=== PATIENT | male | born 1980 | race Caucasian/White ===

== ENCOUNTER 2017-11-30 00:35 | Inpatient (IN) | payer BC ==
[2017-11-29] MEDS: SODIUM CHLOR 0.9% 1000 ML INJ 1,000 ML IV SCH (23:00)
[~2017-11-30] VITALS: Ht 188 cm; Wt 97.8 kg
[~2017-11-30 00:35] MED LIST: ACETAMINOPHEN 325 MG TAB PO PRN; MORPHINE SULFATE 2 MG/ML SYRINGE IV PUSH PRN; MORPHINE SULFATE 4 MG/ML INJ IV PUSH PRN; NALOXONE HCL 0.4 MG/ML AMP IV PUSH PRN; ONDANSETRON HCL 4 MG/2 ML VIAL IVP PRN; SODIUM CHLORIDE 0.9% FLUSH 10 ML FLUSH IV FLUSH PRN
[2017-11-30 04:00] VITALS: BP 114/72; PULSE 65; RESP 20; TEMP 97.8; O2SAT 99
--- NOTE | 2017-11-30 04:27 | HHI.HP ---
[facility] Service [facility] Primary Care Physician No Primary Care Physician Admission Diagnosis right ankle fracture . Diagnoses: (1) Fracture of distal fibula Chief Complaint: right ankle pain x 1 week Travel History International Travel<30 Days: No Contact w/Intl Traveler <30 Da: No History of Present Illness Mr. Barber is a 37 y/o male with no significant medical history who presented to the ER in [place] for evaluation of right ankle pain for one week. He was found to have a right mildly displaced distal fibula fracture with disruption of the ankle mortise. Dr. Jarvis, orthopedics, recommended transfer to [facility] for surgical correction in a.m. The patient is seen in his hospital room. He is eager for discharge so he can return to work. He states he was walking up some steps when he started to fall and turned his ankle. Since that time, he has had persistent right ankle pain and swelling. It has not worsened but has just not improved, prompting his ER visit. He denies any recent illness, chest pain, sob, fevers, nausea, vomiting , or diarrhea. Review of Systems Except as stated in HPI: all other systems reviewed are Neg Past Family Social History Past Medical History Denies DM, HTN, heart disease, respiratory disease, liver disease, kidney problems, DVT, PE, CVA, seizures, cancer, or thyroid problems. . Past Surgical History Left inguinal hernia repair 10 years ago Right knee arthroscopy x 3 . Reported Medications Reported Meds & Active Scripts Active No Active Prescriptions or Reported Medications . Allergies: Coded Allergies: Penicillins (Verified Allergy, Unknown, SWELLING, 11/29/17) Family History Denies family hx heart disease or diabetes; denies family hx of adverse reactions to anesthesia . Social History Tobacco: denies ever smoking Alcohol: occasional Illicit Drugs: denies . Physical Exam Physical Exam CONSTITUTIONAL: This is a well-nourished, well-developed patient, in no apparent distress. INTEGUMENTARY: No rashes or lesions. Cool and dry. HEAD: Atraumatic. Normocephalic. EYES: No scleral icterus. No injection or drainage. ENT: Nose without bleeding, purulent drainage. Airway patent. NECK: Trachea midline. No JVD. CARDIOVASCULAR: Regular rate and rhythm without murmurs, gallops, or rubs. RESPIRATORY: Clear to auscultation. Breath sounds equal bilaterally. No wheezes , rales, or rhonchi. GASTROINTESTINAL: Abdomen soft, non-tender, nondistended. No guarding. MUSCULOSKELETAL: Extremities without clubbing cyanosis. Right lower extremity in splint; sensation, movement intact to toes; capillary refill < 3 secs. NEUROLOGICAL: Awake and alert. Motor and sensory grossly within normal limits. Normal speech. . Caprini VTE Risk Assessment Caprini VTE Risk Assessment: Mod/High Risk (score >= 2) Caprini Risk Assessment Model Point Value = 1 Point Value = 2 Point Value = 3 Point Value = 5 Age 41-60 Minor surgery BMI > 25 kg/m2 Swollen legs Varicose veins or History of unexplained or recurrent spontaneous Oral contraceptives or hormone replacement Sepsis (< 1 month) Serious lung disease, including pneumonia (< 1 month) Abnormal pulmonary function Acute myocardial infarction Congestive heart failure (< 1 month) History of inflammatory bowel disease Medical patient at bed rest Age 61-74 Arthroscopic surgery Major open surgery (> 45 min) Laparoscopic surgery (> 45 min) Malignancy Confined to bed (> 72 hours) Immobilizing plaster cast Central venous access Age >= 75 History of VTE Family history of VTE Factor V Leiden Prothrombin [id number] Lupus anticoagulant Anticardiolipin antibodies Elevated serum homocysteine Heparin-induced thrombocytopenia Other congenital or acquired thrombophilia Stroke (< 1 month) Elective arthroplasty Hip, pelvis, or leg fracture Acute spinal cord injury (< 1 month) Prophylaxis Regimen Total Risk Factor Score Risk Level Prophylaxis Regimen 0-1 Low Early ambulation 2 Moderate Order ONE of the following: *Sequential Compression Device (SCD) *Heparin 5000 units SQ BID 3-4 Higher Order ONE of the following medications: *Heparin 5000 units SQ TID *Enoxaparin/Lovenox 40 mg SQ daily (WT < 150 kg, CrCl > 30 mL/min) *Enoxaparin/Lovenox 30 mg SQ daily (WT < 150 kg, CrCl > 10-29 mL/min) *Enoxaparin/Lovenox 30 mg SQ BID (WT < 150 kg, CrCl > 30 mL/min) AND/OR *Sequential Compression Device (SCD) 5 or more Highest Order ONE of the following medications: *Heparin 5000 units SQ TID (Preferred with Epidurals) *Enoxaparin/Lovenox 40 mg SQ daily (WT < 150 kg, CrCl > 30 mL/min) *Enoxaparin/Lovenox 30 mg SQ daily (WT < 150 kg, CrCl > 10-29 mL/min) *Enoxaparin/Lovenox 30 mg SQ BID (WT < 150 kg, CrCl > 30 mL/min) AND *Sequential Compression Device (SCD) Assessment and Plan Problem List: (1) Fracture of distal fibula ICD Code: S82.839A - Other fracture of upper and lower end of unspecified fibula, initial encounter for closed fracture Assessment and Plan Mr. Barber is a 37 y/o male with no significant medical history who presented to the ER in [place] for evaluation of right ankle pain for one week. He was found to have a right mildly displaced distal fibula fracture with disruption of the ankle mortise. Dr. Jarvis, orthopedics, [place] [facility] [place]. Right ankle fracture - NPO after midnight for surgical intervention - orthopedics consulted - Morphine 2 mg IV q3h PRN pain - Patient anxious to return to work DVT prophylaxis SCDs/TEDs to nonoperative leg . Discussed Condition With Patient, Dr. Milelr, and RN . Physician Certification 2 Midnight Certification Type: Admission for Inpatient Services Order for Inpatient Services The services are ordered in accordance with Medicare regulations or non- Medicare payer requirements, as applicable. In the case of services not specified as inpatient-only, they are appropriately provided as inpatient services in accordance with the 2-midnight benchmark. Estimated LOS (days): 2 days is the estimated time the patient will need to remain in the hospital, assuming treatment plan goals are met and no additional complications. Post-Hospital Plan: Home Problem Qualifiers (1) Fracture of distal fibula: Bela Dobbs November 30, 2017 04:27
--- NOTE | 2017-11-30 06:53 | PD.ORT.PN ---
Subjective Subjective Remarks s/p rolled ankle approx 1 week ago right ankle pain. no other complaints. Objective Vitals Vital Signs Date Time Temp Pulse Resp B/P (MAP) Pulse Ox O2 Delivery O2 Flow Rate FiO2 11/30/17 04:00 97.8 65 20 114/72 (86) 99 Objective Remarks RLE: +short leg splint. intact. NVI Assessment & Plan Assessment and Plan 1) Right distal fibular fx -npo -consents -surgery this AM with [facility] -planned DC home today after surgery Nicola Abbott/[employer] BRENDA November 30, 2017 06:53
[2017-11-30] MEDS ORDERED: HYDR-3580 PO (06:54)
[2017-11-30] MEDS ORDERED: WALKER/ADULT/FO1 MIS (06:54)
--- NOTE | 2017-11-30 07:34 | MB ---
cc: Nigel Farmer MD DATE: 11/30/2017 CONSULTING PROVIDER: Dr. Miller. REASON FOR CONSULTATION: Right ankle fracture. HISTORY OF PRESENT ILLNESS: Pako is a 37-year-old male who presented to the [facility] emergency room with right ankle pain. He states that approximately 1 week ago, he twisted his ankle going down the stairs. He had immediate right ankle pain. X-rays in the emergency room revealed a right distal fibula fracture with widening of the medial clear space. The patient was placed into a splint. 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 The pain is worse with weightbearing. He has been using crutches because of the pain. The pain is improved with rest. PAST MEDICAL HISTORY: None. PAST SURGICAL HISTORY: 1. Right knee arthroscopy. 2. Left hernia repair. MEDICATIONS: None. ALLERGIES: PENICILLIN. FAMILY HISTORY: Noncontributory. He denies any familial medical problems. SOCIAL HISTORY: The patient denies tobacco or drug use. He drinks alcohol occasionally. REVIEW OF SYSTEMS: The patient denies headache, visual changes, neck pain, chest pain, shortness of breath, abdominal pain, nausea, vomiting, recent weight loss, fevers, chills, numbness or tingling of the extremities. He complains of right ankle pain. The pain is worse with movement. LABORATORY DATA: The patient's white blood cell count of 7.0, hematocrit of 42.1, platelet count of 209. INR is 1.0. BUN is 9 and creatinine is 1.0. IMAGING STUDIES: X-rays of right ankle were reviewed. X-rays reveal a mildly displaced right distal fibula fracture. There appears to be a small avulsion off the medial malleolus. There is widening of the medial clear. PHYSICAL EXAMINATION: GENERAL: The patient is a pleasant 37-year-old male. He is awake and alert. He is alert and oriented x 3. He is in no acute distress. VITAL SIGNS: Temperature 97.8, pulse 65, respirations 20, blood pressure 114/72, O2 saturations 99% on room air. HEENT: Head: The patient is normocephalic. Pupils are equal. NECK: Soft and nontender. The trachea is in the midline. ABDOMEN: Soft, nontender, and nondistended. EXTREMITIES: Examination of bilateral upper extremities reveals no pain with shoulder, elbow or wrist motion. He has intact sensation in all fingers. He has good cap refill in fingers. Skin is intact. Radial pulses are palpable. Examination of left leg reveals no pain with hip, knee or ankle motion. Skin is intact. Dorsalis pedis pulse is palpable. Sensation is intact. Examination of right leg reveals no pain with hip or knee motion. He has mild swelling of his ankle. He is tender to palpation over the medial and lateral aspects of the ankle. Skin is intact. Sensation is intact. Dorsalis pedis pulse is palpable. IMPRESSION: Displaced right distal fibula fracture with widening of the medial clear space. PLAN: Treatment options were discussed with the patient. At this point, I would recommend open reduction and internal fixation of the right ankle. Risks of surgery include bleeding, infection; injuries to arteries, nerves, or blood vessels; nonunion, malunion, painful hardware, ankle arthritis as well as medical complications including blood clot, stroke, heart attack and . All questions were answered. I will plan on surgery today. A mid-level provider in my office, nurse practitioner or PA, may see this patient on a follow-up basis and continue to implement the objective of this plan including: Starting or adjusting medications, injections of muscle, tendon, bursa or joints, cast application, orthotic or brace application, physical therapy, further radiographic studies including x-ray, MRI, CT, ultrasounds or bone scan, vascular studies, neurologic studies, or other specialist consultations, and proceeding with surgical management as appropriate. MD VERO Elmore/KELY , 07:02 AM , 07:32 AM
[2017-11-30 08:18] VITALS: BP 131/70; PULSE 71; RESP 18; TEMP 97.7; O2SAT 100
[2017-11-30] MEDS: SODIUM CHLOR 0.9% 1000 ML INJ 1,000 ML IV SCH (08:53)
[2017-11-30] MEDS ORDERED: SODIUM CHLORIDE 0.9% FLUSH 10 ML FLUSH IV FLUSH SCH (09:00)
[2017-11-30] MEDS ORDERED: GENTAMICIN SULFATE 80 MG/2 ML VIAL ONE (09:33)
[2017-11-30] MEDS ORDERED: VANCOMYCIN HCL 1000 MG VIAL ONE (09:33)
[2017-11-30] MEDS ORDERED: CLINDAMYCIN PHOS 900 MG/6 ML VIAL ONE (09:33)
[2017-11-30] MEDS ORDERED: ACETAMINOPHEN/HYDROcodone 325 MG/7.5 MG TAB PO PRN (10:00)
[2017-11-30] MEDS ORDERED: ceFAZolin 2 GM PREMIX 50 ML IV SCH (10:00)
[2017-11-30] MEDS ORDERED: SUGAMMADEX SODIUM 200 MG/2 ML VIAL IV PUSH ONE (10:22)
--- NOTE | 2017-11-30 10:38 | PD.OP ---
cc: Nigel Eid MD Operative Report Date of Surgery: November 30, 2017 Preoperative Diagnosis: Displaced right ankle fracture Postoperative Diagnosis: Procedure: Open reduction internal fixation right distal fibula, stress exam of syndesmosis Anesthesia: General Surgeon: Nigel Eid Senior Materials Scientist(s): ZOFIA Hussein PA-C The surgical procedure was assisted by my physician operations administrative assistant. My P.A. presence was necessary throughout this case for the manipulation and positioning of the surgical extremity. My P.A. was assisting me throughout the duration of this procedure. The skill set of a physician operations administrative assistant was medically necessary to complete this procedure. During the surgical case the instructor adjunct surgical technician was working at the back table and the physician operations administrative assistant was directly assisting me. Operation and Findings: Implants used : ITS Patient was seen and evaluated preoperatively and found to have a displaced right distal fibula fracture with widening of the medial clear space. Informed consent was obtained after a detailed discussion of risk and benefits of surgery. The operative site was marked. Patient was brought to the OR, placed on the OR table, and given IV sedation and general endotracheal anesthesia. IV antibiotics were given preoperatively. A timeout procedure was performed. The operative leg was prepped with alcohol followed by Hibiclens and draped in the usual sterile fashion. Attention was turned towards the distal fibula. A four-inch incision was made over the distal fibula. The subcutaneous tissue was dissected with Bovie. The fracture site was visualized. The fracture site was cleaned with curets. The fracture was now reduced. The fracture keyed into anatomic alignment. K-wires were used to h old provisional fixation. 2.7 mm lag screws were placed to compress fracture. A plate was selected and contoured to fit the distal fibula. The plate was provisionally held to bone with K-wires. 3.5 cortical screws were used to compress the plate to bone. Multiple screws were placed above and below the fracture. Next, attention was turned to the syndesmosis. The syndesmosis was stressed. There was no widening of the syndesmosis with external rotation of the ankle. Incisions were thoroughly irrigated. The subcutaneous tissue was closed with 3- 0 Vicryl and the skin was closed with 3-0 nylon. Sterile dressings were applied. A well molded well-padded splint was applied. The patient was transferred to Recovery in stable condition. Needle and sponge counts were correct. Nigel Eid MD November 30, 2017 10:37
[2017-11-30] MEDS ORDERED: DO NOT ADM ANY ANTICOAGULANT DRUGS PRN (10:59)
[2017-11-30] MEDS ORDERED: *MEPERIDINE 25 MG INJ VIAL PERIprocedural Use ONLY ONE (11:02)
[2017-11-30] MEDS ORDERED: MORPHINE SULFATE 8 MG/ML INJ ONE (11:17)
[2017-11-30] MEDS ORDERED: *LABETALOL HCL 100 MG/20 ML VIAL PERIprocedural Use ONLY ONE (11:17)
[2017-11-30] MEDS ORDERED: Post-op Orders (for Pharmacy) XX ONE (11:59)
[2017-11-30 12:05] VITALS: BP 145/92; PULSE 72; RESP 18; TEMP 97.3; O2SAT 94
[2017-11-30] MEDS: MORPHINE SULFATE 4 MG/ML INJ IV PUSH PRN ×2 (14:04→17:39)
--- NOTE | 2017-11-30 14:09 | RADRPT ---
EXAM DATE/TIME: 11/30/2017 10:07 [facility] COMPARISON: No previous studies available for comparison. INDICATIONS : ORIF right ankle. MEDICAL HISTORY : None. SURGICAL HISTORY : None. ENCOUNTER: Initial ACUITY: 1 day PAIN SCORE: Non-responsive. LOCATION: Right Ankle FINDINGS: 3 images recorded digitally in the operating room using C-arm during placement of lateral fibular jesika te. CONCLUSION: Intraoperative images. Omer Lopes MD on November 30, 2017 at 14:07 Board Certified Radiologist. This report was verified electronically.
[2017-11-30 15:14] LABS: AUTOMATED NEUTROPHIL # 6.8 TH/MM3 (1.8-7.7); BASOPHIL % 0.4 % (0.0-2.0); EOSINOPHIL % 0.3 % (0.0-4.0); HEMATOCRIT 43.2 % (39.0-51.0); HEMOGLOBIN 15.1 GM/DL (13.0-17.0); LYMPH % 9.5 % (9.0-44.0); LYMPHOCYTE # 0.7 TH/MM3 (1.0-4.8); MEAN CELL VOLUME 90.1 FL (80.0-100.0); MEAN CORPUSCULAR HEMOGLOBIN 31.5 PG (27.0-34.0); MEAN CORPUSCULAR HGB CONC 34.9 % (32.0-36.0); MEAN PLATELET VOLUME 9.8 FL (7.0-11.0); MONO % 1.2 % (0.0-8.0); MONOCYTE # 0.1 TH/MM3 (0-0.9); NEUT % 88.6 % (16.0-70.0); PLATELET COUNT 205 TH/MM3 (150-450); RED CELL DISTRIBUTION WIDTH 13.4 % (11.6-17.2); WHITE BLOOD COUNT 7.7 TH/MM3 (4.0-11.0)
[2017-11-30 15:15] LABS: BICARBONATE 28.3 MEQ/L (21.0-32.0); CREATININE 1.25 MG/DL (0.60-1.30)
--- NOTE | 2017-11-30 15:23 | HHI.DCPOC ---
Discharge Care Plan Diagnosis: (1) Fracture of distal fibula Goals to Promote Your Health * To prevent worsening of your condition and complications * To maintain your health at the optimal level Directions to Meet Your Goals Take your medications as prescribed Follow your dietary instruction Follow activity as directed Keep your appointments as scheduled Take your immunizations and boosters as scheduled If your symptoms worsen call your PCP, if no PCP go to Urgent Care Center or Emergency Room Smoking is Dangerous to Your Health. Avoid second hand smoke Call the 24-hour hour crisis hotline for domestic abuse at Sondra Jones November 30, 2017 15:23
--- NOTE | 2017-11-30 15:38 | HHI.PR ---
Addendum to Inpatient Note Addendum Reason: Additional Documentation Additional Information Discharge patient to home Condition on discharge: Improved Regular Diet as tolerated Ad Cindy activity NWB on operative leg, elevate leg Rx written: Adolfo per orthopedics Follow-up with primary care physician in 1 week, follow up with ortho in 2 weeks Patient is very eager to go home, states pain is controlled. Encouraged patient to return if pain worsens Sondra Jones November 30, 2017 15:38
[2017-11-30 16:00] VITALS: BP 125/72; PULSE 94; RESP 18; TEMP 98; O2SAT 97
[2017-11-30] MEDS ORDERED: CLINDAMYCIN 600 MG/NS PREMIX 50 ML IV SCH (18:00)
[2017-11-30 18:02] VITALS: RESP 18
== END 2017-11-30 18:56 | disposition home or self-care (01) | DRG 494 ==
LOC: NEDDLT 00:35 → N06B 00:45
PROVIDERS: ADMIT Hospitalist; ATTEND Hospitalist
PROC: 0QSJ04Z Reposition Right Fibula with Internal Fixation Device, Open Approach (ICD-10-PCS; principal; 2017-11-30 09:38)
DX: S82.831A Other fracture of upper and lower end of right fibula, initial encounter for closed fracture (principal); W10.9XXA Fall (on) (from) unspecified stairs and steps, initial encounter
CPT/HCPCS: 29515; 73600; 73610; 76000; 80048; 80053; 85025; 85610; 85730; 94150; 99285; C1713; E0113; J1580; J2175; J2270; J2405; J3010; J3370